=== PATIENT | male | born 1940 | race Caucasian/White ===

== ENCOUNTER 2016-06-30 05:16 | Day surgery (SDC) | payer MEDICARE ==
[2016-06-29 10:16] LABS: HEMATOCRIT 47.5 % (40.0-51.0); HEMOGLOBIN 16.4 g/dL (13.6-17.8)
[2016-06-29 10:31] LABS: CHLORIDE, SERUM 101 MMOL/L (96-112); CO2 (CARBON DIOXIDE) 28 MMOL/L (24-34); CREATININE 1.09 MG/DL (0.70-1.30); GFR AFRICAN AMERICAN 77 ML/MIN (>=60); GFR NON AFRICAN AMERICAN 67 ML/MIN (>=60); GLUCOSE, SERUM 90 MG/DL (60-99); POTASSIUM, SERUM 4.5 MMOL/L (3.5-5.3); SODIUM, SERUM 137 MMOL/L (135-148)
[2016-06-29 10:32] LABS: BUN (BLOOD UREA NITROGEN) 12 MG/DL (6-23); CALCIUM, SERUM 9.3 MG/DL (8.5-10.4)
[2016-06-29 15:53] LABS: ALBUMIN 3.7 G/DL (3.5-5.0); SGOT(AST) 24 U/L (5-40); SGPT(ALT) 28 U/L (5-65); TOTAL PROTEIN 7.5 G/DL (6.0-8.5)
[2016-06-29 15:54] LABS: ALKALINE PHOSPHATASE 191 U/L (45-117); DIRECT BILIRUBIN 0.2 MG/DL (0.0-0.4); INDIRECT BILIRUBIN(NOT ORDER) 0.4 MG/DL (0.1-0.9); TOTAL BILIRUBIN 0.6 MG/DL (0-1.2)
--- NOTE | ~2016-06-30 | OP ---
Record Of Operation [facility] [address] [place]. [address] NAME: HARLEEN CAO : 44 STATUS : REG [facility] [place] PAT#: [id number] AGE: 76 ADM/REG DATE : 06/30/16 MR#: [id number] REPORT SERV DATE: 06/30/16 DICTATED BY: ANIBAL WEIR DATE: 06/30/16 REPORT STATUS : Draft TRANSCRIBED BY: MODL DATE: 06/30/16 DATE OF PROCEDURE: 06/30/2016 PREOPERATIVE DIAGNOSIS: Acute L1 compression fracture. POSTOPERATIVE DIAGNOSIS: Acute L1 compression fracture. PROCEDURE: L1 kyphoplasty, L1 vertebral body biopsy. SURGEON: Anibal Weir DO. ANESTHESIA: General. ESTIMATED BLOOD LOSS: 5 mL. COMPLICATIONS: None. INDICATIONS: The patient is a 76-year-old with intractable back pain, status post injury causing an L1 acute compression fracture. He had previous imaging studies 1 month ago that showed a normal vertebral body. New x-ray showed an acute compression fracture that was not on the previous films 1 month ago. After failing conservative treatment, he was unable to perform Physical Therapy due to intractable pain, had difficulties with activities of daily living and ability to ambulate. As a result, he was recommended for kyphoplasty for intractable pain. PROCEDURE IN DETAIL: I identified the patient in the holding area. Consent was obtained, went to the operating room, underwent general anesthesia with endotracheal intubation. Turned to prone position, prepped and draped in the usual sterile fashion. Operative safety pause was performed. Then, we proceeded with surgery. AP and lateral images were used to identify the L1 pedicles bilaterally. Small incision was made and Jamshidi needles were placed through the pedicles into the vertebral bodies bilaterally at L1. Core biopsy was obtained and sent for pathologic analysis. Kyphon balloons were inserted and gently inflated under fluoroscopic guidance. They were deflated and removed. Kyphon cement was mixed and gently injected under fluoroscopic guidance bilaterally at L1. Jamshidi needles were then removed. Final AP and lateral images were obtained. Irrigation performed. Hemostasis achieved. Sterile dressings applied. The patient was awoken and extubated, taken to recovery room in stable condition. OPERATIVE FINDINGS: L1 acute compression fracture. AVANI/COLUMBA Anibal Weir DO Record Of Operation [address] [place] [address] NAME: HARLEEN CAO : 44 STATUS : REG [facility] [place] PAT#: [id number] AGE: 76 ADM/REG DATE : 06/30/16 MR#: [id number] REPORT SERV DATE: 06/30/16 DICTATED BY: ANIBAL WEIR DATE: 06/30/16 REPORT STATUS : Draft TRANSCRIBED BY: PERCYL DATE: 06/30/16 / [id number] CC: DO Chanell Viramontes III, M.D.
[~2016-06-30 05:16] MED LIST: ASAB PO; ATEN25 PO; FERROUS SULFATE PO; PROTONIX PO
== END 2016-06-30 18:32 | disposition home or self-care (01) ==
LOC: SDC 05:16
PROVIDERS: Orthopaedic Surgery
PROC: 0QU03JZ Supplement Lumbar Vertebra with Synthetic Substitute, Percutaneous Approach (ICD-10-PCS; 2016-06-30)
PROC: 0QB03ZX Excision of Lumbar Vertebra, Percutaneous Approach, Diagnostic (ICD-10-PCS; 2016-06-30)
PROC: 0QS03ZZ Reposition Lumbar Vertebra, Percutaneous Approach (ICD-10-PCS; principal; 2016-06-30 06:45)
DX: S32.019A Unspecified fracture of first lumbar vertebra, initial encounter for closed fracture (principal); I10 Essential (primary) hypertension; I25.2 Old myocardial infarction; K74.60 Unspecified cirrhosis of liver; K21.9 Gastro-esophageal reflux disease without esophagitis; Z90.49 Acquired absence of other specified parts of digestive tract; Z79.82 Long term (current) use of aspirin; Z79.899 Other long term (current) drug therapy; Z98.890 Other specified postprocedural states
CPT/HCPCS: 80048; 80076; 85014; 85018; 88307; 88311; 93005; C1726; J0690; J2250; J2405; J2710; J3010; Q9967